=== PATIENT | male | born 1950 | race Asian ===

== ENCOUNTER 2017-06-13 13:18 | Emergency (ER) | payer OTHER ==
[2017-06-13 14:32] LABS: BASOPHIL % 0.4 % (0-2); PLATELET COUNT 166 x10^3mcL (130-400); RED CELL DISTRIBUTION WIDTH 13.1 % (11.5-14.5)
[2017-06-13 14:42] LABS: CARBON DIOXIDE 28.1 mmol/L (21-32); CREATININE SERUM 1.3 mg/dL (0.7-1.3)
[2017-06-13 14:46] LABS: ALBUMIN 4.1 g/dL (3.4-5.0); BILIRUBIN TOTAL 0.8 mg/dL (0.20-1.00); TOTAL PROTEIN, SERUM 7.6 g/dL (6.4-8.2)
[2017-06-13 18:13] VITALS: BP 151/91
== END 2017-06-13 18:13 | disposition home or self-care (01) ==
LOC: ED 13:18
PROVIDERS: Emergency Medicine
DX: R51 Headache (principal); I10 Essential (primary) hypertension
CPT/HCPCS: 36415

== ENCOUNTER 2017-12-24 18:01 | Emergency (ER) | payer OTHER, MEDICAID ==
[~2017-12-24] VITALS: Ht 170.2 cm; Wt 74.4 kg
[2017-12-24 18:05] VITALS: Ht 170.2 cm; Wt 74.4 kg
[2017-12-24 19:21] LABS: BASOPHIL % 0.5 % (0-2); PLATELET COUNT 173 x10^3mcL (130-400); RED CELL DISTRIBUTION WIDTH 13.1 % (11.5-14.5)
[2017-12-24 19:32] LABS: CALCIUM 8.7 mg/dL (8.5-10.1); CREATININE SERUM 1.3 mg/dL (0.7-1.3); POTASSIUM SERUM 3.8 mmol/L (3.5-5.1)
[2017-12-24 19:37] LABS: ALBUMIN 3.7 g/dL (3.4-5.0); BILIRUBIN TOTAL 0.5 mg/dL (0.20-1.00); TOTAL PROTEIN, SERUM 6.8 g/dL (6.4-8.2)
[2017-12-24 20:59] VITALS: BP 125/80
== END 2017-12-24 20:59 | disposition home or self-care (01) ==
LOC: ED 18:01
PROVIDERS: Emergency Medicine
DX: I16.0 Hypertensive urgency (principal)
CPT/HCPCS: 36415